=== PATIENT | male | born 1960 | race Caucasian/White ===

== ENCOUNTER 2018-03-14 07:12 | Day surgery (SDC) | payer OTHER ==
--- OUTSIDE RECORDS SUMMARY | 2018-03-14 07:15 | XMS REPORT ---
:1960 Author Organization eClinicalWorks Care Team Providers Name Role Phone Leland Mele Provider Role Unavailable Allergies No Known Allergies Problems Problem Type Condition Code Onset Dates Condition Status Assessment Meniere''s disease of both ears H81.03 Active Assessment Mixed hyperlipidemia E78.2 Active Assessment Chewing tobacco nicotine F17.220 Active dependence, uncomplicated Assessment Fatigue, unspecified type R53.83 Active Assessment Decreased libido R68.82 Active Problem Decreased libido R68.82 Active Problem Fatigue, unspecified type R53.83 Active Problem Mixed hyperlipidemia E78.2 Active Problem Slowing, urinary stream R39.198 Active Problem Meniere''s disease of both ears H81.03 Active Problem Chewing tobacco nicotine F17.220 Active dependence, uncomplicated Medications No Known Medications Results No Known Results Summary Purpose eClinicalWorks Submission
--- OUTSIDE RECORDS SUMMARY | 2018-03-14 07:15 | XMS REPORT ---
:1960 Author Organization eClinicalWorks Care Team Providers Name Role Phone Mele Ha Provider Role Unavailable Allergies, Adverse Reactions, Alerts Substance Reaction Event Type penicillin Info Not Available Drug Allergy Problems Problem Type Condition Code Onset Dates Condition Status Assessment Fatigue, unspecified type R53.83 Active Assessment Meniere''s disease of both ears H81.03 Active Assessment Decreased libido R68.82 Active Problem Fatigue, unspecified type R53.83 Active Problem Meniere''s disease of both ears H81.03 Active Problem Decreased libido R68.82 Active Assessment Encounter for preventative adult Z00.01 Active health care exam with abnormal findings Assessment Chewing tobacco nicotine F17.220 Active dependence, uncomplicated Problem Chewing tobacco nicotine F17.220 Active dependence, uncomplicated Problem Slowing, urinary stream R39.198 Active Assessment Slowing, urinary stream R39.198 Active Assessment Encounter for screening for other Z11.59 Active viral diseases Assessment Screening for colon cancer Z12.11 Active Medications No Known Medications Results No Known Results Summary Purpose eClinicalWorks Submission
[2018-03-14] MEDS ORDERED: Ringers Lactate 1,000 ML IV ONE (07:52)
[2018-03-14] MEDS ORDERED: SIMETHICONE 40 MG/ 0.6 ML ONE (08:04)
[2018-03-14] MEDS ORDERED: LIDOCAINE 1% MPF 5 ML VIAL ONE (08:37)
[2018-03-14] MEDS ORDERED: PROPOFOL 200 MG/20 ML VIAL IV ONE (08:37)
--- NOTE | 2018-03-14 09:09 | ENDO RPT ---
[address], [address] COLONOSCOPY PROCEDURE REPORT EXAM DATE: 03/14/2018 PATIENT NAME: Harvey Mehta MR #: [id number] BIRTHDATE: 1960 ATTENDING: Simone Gonzalez DR STATUS: outpatient SAP TRAINER: Beata Hess and Guerda Kinciad RN INDICATIONS: The patient is a 57 yr old Male here for a colonoscopy due to colon cancer screening PROCEDURE PERFORMED: Colonoscopy with biopsy - cold polypectomy MEDICATIONS: Per Anesthesia. ESTIMATED BLOOD LOSS: None CONSENT: The patient understands the risks and benefits of the procedure and understands that these risks include, but are not limited to: sedation, allergic reaction, infection, perforation and/or bleeding. Alternative means of evaluation and treatment include, among others: physical exam, x-rays, and/or surgical intervention. The patient elects to proceed with this endoscopic procedure. DESCRIPTION OF PROCEDURE: During intra-op preparation period all mechanical medical equipment was checked for proper function. Hand hygiene and appropriate measures for infection prevention was taken. Procedure, possible complications, alternatives including, but not limited to possibility of bleeding, perforation, tear, infection, sepsis, need for surgery, need for blood transfusion, were explained to the patient. After the risks, benefits and alternatives of the procedure were thoroughly explained, Informed consent was verified, confirmed and timeout was successfully executed by the treatment team. The patient was placed in the left lateral position. A digital rectal exam was performed and revealed an enlarged prostate and A digital rectal exam was performed and revealed internal hemorrhoids. After appropriate level of anesthesia, the scope was passed. The EC-[id number] ([id number]) endoscope was introduced through the anus and advanced to the cecum, which was identified by both the appendix and ileocecal valve. The quality of the prep was fair. The instrument was then slowly withdrawn as the colon was fully examined. Scope withdrawal time was 10 minutes. COLON FINDINGS: Mild diverticulosis was noted in the sigmoid colon. No bleeding was noted from the diverticulosis. Two small smooth flat polyps were found in the sigmoid colon. A polypectomy was performed with cold forceps. The resection was complete, the polyp tissue was completely retrieved and sent to histology. A polypectomy was performed using snare cautery. The resection was complete, the polyp tissue was completely retrieved and sent to histology. Retroflexed views revealed no abnormalities. The scope was then completely withdrawn from the patient and the procedure terminated. ADVERSE EVENTS: There were no complications. IMPRESSIONS: 1. Mild diverticulosis was noted in the sigmoid colon 2. Two small flat polyps were found in the sigmoid colon; polypectomy was performed in a piecemeal fashion with cold forceps; polypectomy was performed using snare cautery RECOMMENDATIONS: 1. avoid NSAIDS for 2 weeks 2. await biopsy results 3. follow-up: office 2 week(s) 4. yearly hemoccult starting in 4 years 5. increase dietary water RECALL: Return in 3 year(s) for Colonoscopy, pending biopsy results. Pending Biopsy Simone Gonzalez DR eSigned: Simone Gonzalez DR 03/14/2018 9:00 AM cc: CPT CODES: ICD9 CODES: PATIENT NAME: Harvey Mehta MR#: [id number]
== END 2018-03-14 09:40 | disposition home or self-care (01) ==
LOC: OR 07:12
PROVIDERS: ATTEND Surgery
PROC: 0DBN8ZX Excision of Sigmoid Colon, Via Natural or Artificial Opening Endoscopic, Diagnostic (ICD-10-PCS; 2018-03-14)
PROC: 0DBN8ZX Excision of Sigmoid Colon, Via Natural or Artificial Opening Endoscopic, Diagnostic (ICD-10-PCS; principal; 2018-03-14 08:30)
DX: Z12.11 Encounter for screening for malignant neoplasm of colon (principal); D12.5 Benign neoplasm of sigmoid colon; K63.5 Polyp of colon; K57.30 Diverticulosis of large intestine without perforation or abscess without bleeding; F17.220 Nicotine dependence, chewing tobacco, uncomplicated; Z88.0 Allergy status to penicillin; Z83.3 Family history of diabetes mellitus; Z82.49 Family history of ischemic heart disease and other diseases of the circulatory system; Z80.3 Family history of malignant neoplasm of breast
CPT/HCPCS: 88305; J2704

== ENCOUNTER 2022-12-03 12:35 | Emergency (ER) | payer OTHER ==
--- OUTSIDE RECORDS SUMMARY | 2022-12-03 12:37 | XMS REPORT | Continuity of Care Document ---
:1960 Author Organization [facility] t Address [address] [place] [address] [place] [address] Care Team Providers Name Role Phone Mele Ha Attending Clinician Unavailable Payers Payer Name Policy Type Policy Number Effective Date Expiration Date S pam Martinjaspal from [id number] [address] [facility] 00:00:00 - [facility] Problems Condition Condition Condition Status Onset Resolution Last Treating Co mments Source Name Details Category Date Date Treatment Clinician Date [id number] Slowing, Problem Commo n urinary Spirit stream [facility] [id number] Chewing Problem Common tobacco [facility] [id number] Meniere''s Problem Com mon disease of Spirit both ears [facility] [id number] Hypercalce Problem Com mon leonor [facility] [id number] Primary Problem Common insomnia [facility] [id number] Fatigue, Problem Commo n unspecifie Spirit d type [facility] [id number] Decreased Problem Commo n libido [facility] [id number] Mixed Problem Common hyperlipid Spirit emia [facility] [id number] Allergic Problem Commo n rhinitis, Spirit unspecifie - [facility] d [facility] un[facility] d trigger Allergies, Adverse Reactions, Alerts Allergy Allergy Status Severity Reaction(s) Onset Inactive Treating Comm ents Source Name Type Date Date Clinician Penicill Penicill Active Unknown Commo n in in [facility] Social History Social Habit Start Date Stop Date Quantity Comments Source History of Tobacco Use Co mmon [facility] Sex Assigned At Com mon [facility] Smoking Status Start Date Stop Date Source Former Smoker 2021-12-13 00:00:00 2021-12-13 00[facility]00:00 [facility]ations Ordered Filled Start Stop Current Ordering Indication Dosage Frequency Signature Comments Components Source Medication Medication Date Date Medication? Clinician (SIG) Name Name Janine Mehta No 40mg Common (Triamcinol (Triamcinol 9-13 S pirit one) one) 00:00: - [facility] Janine Mehta No 40mg Common (Triamcinol (Triamcinol 9-13 S pirit one) one) 00:00: - [facility] Janine Mehta No 40mg Common (Triamcinol (Triamcinol 9-13 S pirit one) one) 00:00: - [facility] Rosuvastati Rosuvastati No 1{table QD Rosuvastat n Calcium 5 n Calcium 5 8-11 t} in Calcium MG MG 00:00: 5 MG [facility] No 40mg Common (Triamcinol (Triamcinol 0-14 S pirit one) one) 00:00: - [facility] Janine Mehta 2018-04 No 40mg Common (Triamcinol (Triamcinol 0-14 S pirit one) one) 00:00: - [facility] Janine Mehta 2018-04 No 40mg Common (Triamcinol (Triamcinol 0-14 S pirit one) one) 00:00: - [facility] Janine Mehta No 40mg Common (Triamcinol (Triamcinol 4-17 S pirit one) one) 00:00: - [facility] Janine Mehta No 40mg Common (Triamcinol (Triamcinol 4-17 S pirit one) one) 00:00: - [facility] Janine Mehta 2019-0 No 40mg Common (Triamcinol (Triamcinol 4-17 S pirit one) one) 00:00: - [facility] Janine Reynaalog 2019-0 No 40mg Common (Triamcinol (Triamcinol 4-04 S pirit one) one) 00:00: - [facility] Janine Kenfan 2019-0 No 40mg Common (Triamcinol (Triamcinol 4-04 S pirit one) one) 00:00: - [facility] Janine Mehta 2019-0 No 40mg Common (Triamcinol (Triamcinol 4-04 S pirit one) one) 00:00: - [facility] Tamsulosin Tamsulosin No 1{capsu QD Tamsulosin HCl 0.4 MG HCl 0.4 MG le} HCl 0.4 MG Rosuvastati Rosuvastati No Rosuvastat n Calcium 5 n Calcium 5 in Calcium MG MG 5 MG Tamsulosin Tamsulosin No 1{capsu QD Tamsulosin HCl 0.4 MG HCl 0.4 MG le} HCl 0.4 MG Rosuvastati Rosuvastati No Rosuvastat n Calcium 5 n Calcium 5 in Calcium MG MG 5 MG Tamsulosin Tamsulosin No 1{capsu QD Tamsulosin HCl 0.4 MG HCl 0.4 MG le} HCl 0.4 MG Tamsulosin Tamsulosin Yes Mele 1 capsule Common HCl HCl Ha [facility] - [facility] Tamsulosin Tamsulosin No 1{capsu QD Tamsulosin HCl 0.4 MG HCl 0.4 MG le} HCl 0.4 MG Rosuvastati Rosuvastati No Rosuvastat n Calcium 5 n Calcium 5 in Calcium MG MG 5 MG Tamsulosin Tamsulosin No 1{capsu QD Tamsulosin HCl 0.4 MG HCl 0.4 MG le} HCl 0.4 MG Rosuvastati Rosuvastati No Rosuvastat n Calcium 5 n Calcium 5 in Calcium MG MG 5 MG Tamsulosin Tamsulosin No 1{capsu QD Tamsulosin HCl 0.4 MG HCl 0.4 MG le} HCl 0.4 MG Rosuvastati Rosuvastati No Rosuvastat n Calcium 5 n Calcium 5 in Calcium MG MG 5 MG Immunizations Ordered Immunization Filled Immunization Date Status Commen ts Source Name Name Janine Mehta 2021-01-09 Completed Common [facility] (Triamcinolone) (Triamcinolone) 13:54:00 - [facility] Janine Mehta 2019-02-09 Completed Common [facility] (Triamcinolone) (Triamcinolone) 15:09:00 - [facility] Janine Mehta 2018-08-13 Completed Common [facility] (Triamcinolone) (Triamcinolone) 15:18:00 - [facility] Janine Mehta 2018-07-31 Completed Common [facility] (Triamcinolone) (Triamcinolone) 15:56:00 [facility] Vital Signs Vital Name Observation Time Observation Value Comments Source height 2021-12-14 15:50:00 70 [in_i] [facility] weight 2021-12-14 15:50:00 165 [lb_av] [facility] temperature 2021-12-14 15:50:00 98.6 [degF] [facility] bmi 2021-12-14 15:50:00 23.67 kg/m2 [facility] blood pressure 2021-12-14 15:50:00 120 mm[Hg] Common [facility] - systolic [facility] blood pressure 2021-12-14 15:50:00 70 mm[Hg] Common [facility] - diastolic [facility] height 2021-11-08 16:00:00 70 [in_i] [facility] weight 2021-11-08 16:00:00 163.6 [lb_av] [facility] temperature 2021-11-08 16:00:00 97.8 [degF] [facility] bmi 2021-11-08 16:00:00 23.47 kg/m2 [facility] oximetry 2021-11-08 16:00:00 97 % Common S pirit [facility] respiratory rate 2021-11-08 16:00:00 17 /min Comm on [facility] blood pressure 2021-11-08 16:00:00 130 mm[Hg] Common [facility] - systolic [facility] blood pressure 2021-11-08 16:00:00 65 mm[Hg] Common [facility] - diastolic [facility] height 2021-04-13 09:50:00 70 [in_i] Common S [facility] weight 2021-04-13 09:50:00 171.0 [lb_av] [facility] temperature 2021-04-13 09:50:00 97.0 [degF] Common [facility] bmi 2021-04-13 09:50:00 24.53 kg/m2 Common [facility] oximetry 2021-04-13 09:50:00 100 % Common [facility] respiratory rate 2021-04-13 09:50:00 18 /min Comm on [facility] blood pressure 2021-04-13 09:50:00 120 mm[Hg] Common [facility] - systolic [facility] blood pressure 2021-04-13 09:50:00 85 mm[Hg] Common [facility] - diastolic [facility] height 2021-01-09 13:40:00 70 [in_i] Common S pirit [facility] weight 2021-01-09 13:40:00 178.5 [lb_av] Common [facility] temperature 2021-01-09 13:40:00 97.6 [degF] [facility] bmi 2021-01-09 13:40:00 25.61 kg/m2 Common S [facility] oximetry 2021-01-09 13:40:00 98 % [facility] rate 2021-01-09 13:40:00 18 /min Comm on [facility] blood pressure 2021-01-09 13:40:00 135 mm[Hg] Common [facility] - systolic [facility] blood pressure 2021-01-09 13:40:00 74 mm[Hg] Common [facility] - diastolic [facility] Procedures This patient has no known procedures. Encounters Start End Encounter Admission Attending Care Care Encounter Source Date/Time Date/Time Type Type Clinicians Facility Department ID 2022-11-12 Outpatient Ha, STLMLC STLMLC [id number] Common 11:27:00 Mele [id number] [facility] 2021-05-24 Outpatient Ha, STLMLC STLMLC [id number] Common 13:49:11 Mele 15810 [facility] 2021-05-24 Outpatient Ha, STLMLC STLMLC [id number] Common 13:24:54 Mele 39222 [facility] 2021-05-24 Outpatient Ha, STLMLC STLMLC [id number] Common 13:24:19 Mele 80917 [facility] 2021-05-24 Outpatient Ha, STLMLC STLMLC [id number] Common 12:38:40 Mele 23775 [facility] 2021-05-24 Outpatient Ha, STLMLC STLMLC [id number] Common 12:38:10 Mele 25688 [facility] 2021-05-24 Outpatient Ha, STLMLC STLMLC [id number] Common 11:18:01 Mele 74682 [facility] 2021-05-24 Outpatient Ha, STLMLC STLMLC [id number] Common 11:17:45 Mele 58147 [facility] 2021-05-24 Outpatient Ha, STLMLC STLMLC [id number] Common 11:01:06 Mele 26083 [facility] 2022-03-02 2022-03-02 (TEL) STLMLC STLMLC [id number] Co mmon 00:00:00 00:00:00 [facility] 2021-12-14 2021-12-14 OFFICE STLMLC STLMLC [id number] Co mmon 00:00:00 00:00:00 VISIT EST Spir it PT LEVEL 3 [facility] 2021-11-08 2021-11-08 PREV VISIT STLMLC STLMLC [id number] Common 00:00:00 00:00:00 EST [age] Manohar [age] [facility] 2021-04-13 2021-04-13 OFFICE STLMLC STLMLC [id number] Co mmon 00:00:00 00:00:00 VISIT EST Spir it PT LEVEL 3 [facility] 2021-04-12 2021-04-12 (TEL) STLMLC STLMLC [id number] Co mmon 00:00:00 00:00:00 [facility] 2021-01-09 2021-01-09 OFFICE STLMLC STLMLC [id number] Co mmon 00:00:00 00:00:00 VISIT EST Spir it PT LEVEL 3 [facility] 2020-12-07 2020-12-07 Outpatient STLMLC STLMLC [id number] Common 00:00:00 00:00:00 [facility] 2020-11-07 2020-11-07 Outpatient STLMLC STLMLC [id number] Common 00:00:00 00:00:00 [facility] 2020-07-07 2020-07-07 Outpatient STLMLC STLMLC [id number] Common 00:00:00 00:00:00 [facility] 2020-03-01 2020-03-01 Outpatient STLMLC STLMLC [id number] Common 00:00:00 00:00:00 [facility] 2019-10-29 2019-10-29 [id number] Common 15:30:00 15:30:[address] [facility] 2019-10-06 2019-10-06 [facility] [id number] Common 15:30:00 15:30:[address] [facility] 2019-05-13 2019-05-13 [facility] [id number] Common 15:29:00 15:29:[facility] [address] [facility] 2019-05-12 2019-05-12 [facility] [id number] Common 14:45:00 14:45:00 [facility] [address] [facility] 2019 2019 [facility] [id number] Common 16:41:00 16:41:00 [facility] [address] [facility] 2019-02-09 2019-02-09 [facility] [id number] Common 14:45:00 14:45:00 [facility] [address] [facility] 2018-11-06 2018-11-06 [facility] [id number] Common 15:15:00 15:15:00 [facility] [address] [facility] 2018-08-13 2018-08-13 [facility] [id number] Common 15:00:00 15:00:00 [facility] [address] [facility] 2018-07-31 2018-07-31 [facility] [id number] Common 15:15:00 15:15:00 [facility] [address] [facility] 2018-05-08 2018-05-08 [facility] [id number] Common 14:15:00 14:15:00 t Specialty/U Sp acacia Specialty rology - [facility] 2017-12-02 2017-12-02 [facility] [id number] Common 14:45:00 14:45:00 [facility] [address] [facility] 2017-08-26 2017-08-26 [facility] [id number] Common 14:45:00 14:45:00 [facility] [address] [facility] Results This patient has no known results.
[2022-12-03] MEDS ORDERED: KETOROLAC 30 MG/ML INJ ONE (13:24)
[2022-12-03] MEDS ORDERED: NA CHLORIDE 0.9% 1,000 ML ONE (13:24)
--- NOTE | 2022-12-03 13:43 | RAD REPORT ---
EXAM DESCRIPTION: CT - Stone Protocol - 12/03/2022 1:15 pm CLINICAL HISTORY: Abdominal pain. Left flank pain COMPARISON: None. TECHNIQUE: Computed axial tomography of the abdomen pelvis was obtained without oral or IV contrast. Lack of IV and oral contrast limits evaluation of solid organs, appendix, bowel, and vessels. Rodriguez l reformatted images were obtained and reviewed. All CT scans are performed using dose optimization technique as appropriate and may include automated exposure control or mA/KV adjustment according to patient size. FINDINGS: Tiny left renal calculus. Small renal cysts. No hydronephrosis. No ureteral calculus. A bl adder calculus is not present. The prostate gland is mildly to moderately enlarged. Small low-density lesion liver nonspecific but probably benign. The spleen, pancreas and adrenals are unremarkable. Diverticula stem from the colon. Mild stranding adjacent to the sigmoid colon. This is compatible wit h minimal diverticulitis. No free air. No abscess Small inguinal hernias contain fat IMPRESSION: Mild sigmoid diverticulitis Tiny nonobstructing left renal calculus
[2022-12-03 14:10] LABS: Albumin 3.7 g/dL (3.4-5.0); Bilirubin Total 0.9 mg/dL (0.2-1.0); Potassium 3.3 mEq/L (3.5-5.1); Protein, Total 7.1 g/dL (6.4-8.2)
[2022-12-03 14:55] LABS: Hematocrit 49.5 % (39.6-49.0); Lymphocytes % 24.6 % (15.3-44.8); MCV 92.2 fL (80-100); MPV 8.9 fL (7.6-11.3); Platelets 199 thou/uL (152-406); RBC Red Blood Cell Count 5.37 M/uL (4.33-5.43)
[2022-12-03 14:57] LABS: Specific Gravity 1.016 (1.005-1.030); Urine Bilirubin NEGATIVE (Negative); Urine Blood Negative (Negative); Urine Clarity Clear (Clear); Urine Color Light-Yellow (Yellow); Urine Glucose NEGATIVE (Negative); Urine Protein NEGATIVE (Negative); Urine Urobilinogen 1+ (Normal); Urine pH 6.5 (5.0-7.0)
--- NOTE | 2022-12-03 15:18 | EDPHYS ---
Physician Documentation [facility] Name: Harvey Mehta Age: 62 yrs Sex: Male : 1960 Arrival Date: 12/03/2022 Time: 12:35 Bed 18 Private MD: ED Physician Akhil Pimentel HPI: 12/03 13:00 This 62 yrs old Male presents to ER via Wheelchair with complaints of Possible Kidney jh7 Stone. 13:00 Onset: The symptoms/episode began/occurred yesterday. Associated signs and symptoms: jh7 Pertinent negatives: chest pain, cough, dysuria, fever, vomiting. 62-year-old male presents with a possible left kidney stone. He reports left flank pain since yesterday and has a history of multiple kidney stones. He denies fever.. Historical: - Allergies: 12:52 PENICILLINS; eh3 - PMHx: 12:52 Kidney stone; eh3 - PSHx: 12:52 Appendectomy; eh3 - Immunization history:: Adult Immunizations not up to date. - Social history:: Smoking status: Patient denies any tobacco usage or history of. Patient/guardian denies using alcohol. ROS: 13:00 Constitutional: Negative for fever, chills, and weight loss, Eyes: Negative for injury, jh7 pain, redness, and discharge, Neck: Negative for injury, pain, and swelling, Cardiovascular: Negative for chest pain, palpitations, and edema, Respiratory: Negative for shortness of breath, cough, wheezing, and pleuritic chest pain, Abdomen/GI: Negative for abdominal pain, nausea, vomiting, diarrhea, and constipation, MS/Extremity: Negative for injury and deformity, Skin: Negative for injury, rash, and discoloration, Neuro: Negative for headache, weakness, numbness, tingling, and seizure. 13:00 Back: Positive for flank pain, on the left. 13:00 : Positive for flank pain, Negative for urinary symptoms. 13:00 All other systems are negative. Exam: 13:00 Eyes: Pupils equal round and reactive to light, extra-ocular motions intact. Lids and jh7 lashes normal. Conjunctiva and sclera are non-icteric and not injected. Cornea within normal limits. Periorbital areas with no swelling, redness, or edema. Neck: Trachea midline, no thyromegaly or masses palpated, and no cervical lymphadenopathy. Supple, full range of motion without nuchal rigidity, or vertebral point tenderness. No Meningismus. Cardiovascular: Regular rate and rhythm with a normal S1 and S2. No gallops, murmurs, or rubs. Normal PMI, no JVD. No pulse deficits. Respiratory: Lungs have equal breath sounds bilaterally, clear to auscultation and percussion. No rales, rhonchi or wheezes noted. No increased work of breathing, no retractions or nasal flaring. Skin: Warm, dry with normal turgor. Normal color with no rashes, no lesions, and no evidence of cellulitis. MS/ Extremity: Pulses equal, no cyanosis. Neurovascular intact. Full, normal range of motion. Neuro: Awake and alert, GCS 15, oriented to person, place, time, and situation. Motor strength 5/5 in all extremities. Sensory grossly intact. Normal gait. 13:00 Constitutional: The patient appears alert, awake, in obvious pain. 13:00 : CVA tenderness, that is mild. 13:00 Abdomen/GI: Inspection: abdomen appears normal, Bowel sounds: normal, Palpation: [facility] abdomen is soft and non-tender, in all quadrants. Vital Signs: 12:50 Pulse 77; Resp 18; Temp 98.3; Pulse Ox 100% on R/A; Weight 77.11 kg; Height 5 ft. 10 eh3 in. ; Pain 9/10; 13:07 BP 129 / 84; Pulse 79; Resp 16; Pulse Ox 98% on R/A; Pain 7/10; me1 14:09 BP 120 / 90; Pulse 56; Resp 16; Pulse Ox 99% on R/A; me1 14:45 BP 128 / 88; Pulse 70; Resp 18; Pulse Ox 100% on R/A; me1 12:50 Body Mass Index 24.39 (77.11 kg, 177.8 cm) 3 12:50 Pain Scale: Adult eh3 13:07 Pain Scale: Adult me1 MDM: 12:44 Patient medically screened. [facility] 15:10 Differential diagnosis: Nephrolithiasis, sciatica, lumbar strain, diverticulitis. Data [facility] reviewed: vital signs, nurses notes, lab test result(s), radiologic studies, CT scan. I considered the following discharge prescriptions or medication management in the emergency department Medications were administered in the Emergency Department. See MAR. Historians other than the Patient: Spouse/Significant Other: . Counseling: I had a detailed discussion with the patient and/or guardian regarding: the historical points, exam findings, and any diagnostic results supporting the discharge/admit diagnosis, to return to the emergency department if symptoms worsen or persist or if there are any questions or concerns that arise at home. Response to treatment: the patient's symptoms have markedly improved after treatment. 15:10 ED course: Informed the patient of imaging results. Informed him that the CT showed a jh7 tiny renal stone in the kidney and that it was not in the ureter, therefore, not the cause of his pain. He requested a refill of his Flomax. Agreed to treat for diverticulitis. He denied any abdominal pain but reports that the flank pain radiates to his left hip. Agreed to follow-up with his PCP. If he develops any new concerning symptoms, he may return to the ER for further eval.. 12/03 12:57 Order name: CMP; Complete Time: 14:47 [facility] 12/03 12:57 Order name: CBC with Diff; Complete Time: 15:05 [facility] 12/03 12:57 Order name: Urinalysis w/ reflexes; Complete Time: 15:05 [facility] 12/03 12:57 Order name: CT Stone Protocol; Complete Time: 13:49 [facility] Administered Medications: 13:29 Drug: NS 0.9% IV 1000 ml Route: IV; Rate: 1 bolus; Site: right antecubital; me1 14:11 Follow up: IV Status: Completed infusion; IV Intake: 1000ml me1 13:29 Drug: Ketorolac IVP 30 mg Route: IVP; Site: right antecubital; me1 14:10 Follow up: Response: No adverse reaction; Pain is decreased me1 Disposition: 15:57 Co-signature as Attending Physician, Akhil Pimentel MD. rn Disposition Summary: 12/03/22 15:17 Discharge Ordered Location: Home [facility] Problem: new jh Symptoms: have improved jh7 Condition: Stable jh7 Diagnosis - Diverticulitis of large intestine without perforation or abscess without bleeding jh7 - Nephrolithiasis jh7 Followup: [facility] - With: Private Physician - When: 2 - 3 days - Reason: Recheck today's complaints Discharge Instructions: - Discharge Summary Sheet jh7 - Diverticulitis jh7 - Kidney Stones [facility] Forms: - Medication Reconciliation Form [facility] - Thank You Letter [facility] - Antibiotic Education [facility] - Prescription Opioid Use [facility] - Patient Portal Instructions [facility] Prescriptions: - Flomax 0.4 mg Oral capsule - take 1 capsule by ORAL route daily; 14 capsule; Refills: 0, Product Selection [facility] Permitted - Cipro 500 mg Oral Tablet - take 1 tablet by ORAL route every 12 hours for 10 days; 20 tablet; Refills: 0, [facility] Product Selection Permitted - Flagyl 500 mg Oral Tablet - take 1 tablet by ORAL route every 12 hours for 7 days; 14 tablet; Refills: 0, [facility] Product Selection Permitted - Tramadol 50 mg Oral Tablet - take 1 tablet by ORAL route every 8 hours as needed; 12 tablet; Refills: 0, [facility] Product Selection Permitted Signatures: Dispatcher [employer] EDAkhil Faulkner MD MD rn Hall, Erin, RN RN 3 Jacqueline Saravia, [place] [address] Coty Vang RN RN me1 Corrections: (The following items were deleted from the chart) 16:25 13:00 : CVA tenderness, that is moderate, [place] [id number]
--- NOTE | 2022-12-03 15:18 | ER ---
Nurse's Notes [facility] Name: Harvey Mehta Age: 62 yrs Sex: Male : 1960 Arrival Date: 12/03/2022 Time: 12:35 Bed 18 Private MD: Diagnosis: Diverticulitis of large intestine without perforation or abscess without bleeding;Nephrolithiasis Presentation: 12/03 12:50 Chief complaint: Patient states: left flank pain started yesterday, has Hx of kidney eh3 stones. Coronavirus screen: Vaccine status: Patient reports being unvaccinated. Ebola Screen: No symptoms or risks identified at this time. Initial Sepsis Screen: Does the patient meet any 2 criteria? No. Patient's initial sepsis screen is negative. Does the patient have a suspected source of infection? No. Patient's initial sepsis screen is negative. Risk Assessment: Do you want to hurt yourself or someone else?. Onset of symptoms was December 03, 2022. 12:50 Method Of Arrival: Wheelchair eh3 12:50 Acuity: TACO 3 eh3 Triage Assessment: 12:52 General: Appears in no apparent distress. uncomfortable, Behavior is cooperative, eh3 appropriate for age. Pain: Complains of pain in left flank. Neuro: Level of Consciousness is awake, alert, obeys commands, Oriented to person, place, time, situation. Cardiovascular: Capillary refill < 3 seconds Patient's skin is warm and dry. Respiratory: Airway is patent Respiratory effort is even, unlabored, Respiratory pattern is regular, symmetrical. GI: Abdomen is round non-distended. Historical: - Allergies: 12:52 PENICILLINS; eh3 - PMHx: 12:52 Kidney stone; eh3 - PSHx: 12:52 Appendectomy; eh3 - Immunization history:: Adult Immunizations not up to date. - Social history:: Smoking status: Patient denies any tobacco usage or history of. Patient/guardian denies using alcohol. Screenin:07 [facility] ED Fall Risk Assessment (Adult) Score/Fall Risk Level 0 - 2 = Low Risk. Abuse me1 screen: Denies threats or abuse. Nutritional screening: No deficits noted. Tuberculosis screening: No symptoms or risk factors identified. Assessment: 13:07 General: Appears uncomfortable, well groomed, well developed, well nourished, Behavior me1 is cooperative, appropriate for age, agitated, Reports left flank pain that started yesterday. Denies fever, feeling ill, fatigue, chills. 13:07 Pain: Complains of pain in left flank Pain does not radiate. Pain currently is 7 out of me1 10 on a pain scale. Quality of pain is described as sharp, Pain began 1 day ago. Neuro: Level of Consciousness is awake, alert, obeys commands, Oriented to person, place, time, situation, Appropriate for age. Cardiovascular: Capillary refill < 3 seconds Patient's skin is warm and dry. Respiratory: Respiratory effort is even, unlabored, Respiratory pattern is regular, symmetrical. GI: Patient currently denies nausea, vomiting. : Denies burning with urination. 15:48 GI: Bowel sounds present X 4 quads. [facility] Vital Signs: 12:50 Pulse 77; Resp 18; Temp 98.3; Pulse Ox 100% on R/A; Weight 77.11 kg; Height 5 ft. 10 eh3 in. ; Pain 9/10; 13:07 BP 129 / 84; Pulse 79; Resp 16; Pulse Ox 98% on R/A; Pain 7/10; me1 14:09 BP 120 / 90; Pulse 56; Resp 16; Pulse Ox 99% on R/A; me1 14:45 BP 128 / 88; Pulse 70; Resp 18; Pulse Ox 100% on R/A; me1 12:50 Body Mass Index 24.39 (77.11 kg, 177.8 cm) 3 12:50 Pain Scale: Adult [facility] 13:07 Pain Scale: Adult [facility] ED Course: 12:35 Patient arrived in ED. rg4 12:44 Jacqueline Saravia FNP is PHCP. jh7 12:44 Akhil Pimentel MD is Attending Physician. 7 12:52 Triage completed. eh3 12:52 Arm band placed on. eh3 13:07 Coty Vang, OSITO is Primary Nurse. me1 13:07 Patient has correct armband on for positive identification. Bed in low position. Call [facility] light in reach. Side rails up X 1. Provided Education on: POC. Verbalized understanding. . 13:07 No provider procedures requiring assistance completed. az1 13:14 CT Stone Protocol In Process Unspecified. EDMS 13:29 Inserted saline lock: 20 gauge in right antecubital area, using aseptic technique. me1 13:29 CBC with Diff Sent. me1 13:29 CMP Sent. me1 14:29 Urinalysis w/ reflexes Sent. me1 15:48 IV discontinued, intact, bleeding controlled, No redness/swelling at site. Pressure me1 dressing applied. Administered Medications: 13:29 Drug: NS 0.9% IV 1000 ml Route: IV; Rate: 1 bolus; Site: right antecubital; me1 14:11 Follow up: IV Status: Completed infusion; IV Intake: 1000ml me1 13:29 Drug: Ketorolac IVP 30 mg Route: IVP; Site: right antecubital; me1 14:10 Follow up: Response: No adverse reaction; Pain is decreased me1 Medication: 13:07 VIS not applicable for this client. me1 Intake: 14:11 IV: 1000ml; Total: 1000ml. me1 Outcome: 15:17 Discharge ordered by . [facility] 15:48 Discharged to home ambulatory, with significant other. me1 15:48 Condition: stable 15:48 Discharge instructions given to patient, significant other, Instructed on discharge instructions, follow up and referral plans. medication usage, Demonstrated understanding of instructions, follow-up care, medications. 15:49 Patient left the ED. me1 Signatures: Dispatcher [employer] Miladis Melendez 4 Franci Barnes, RN RN 3 Jacqueline Saravia, CREAM BEATER CREAM BEATER 7 Coty Vang, RN RN me1
[2022-12-03 15:58] VITALS: TEMP 98.3
[2022-12-03 16:15] VITALS: BP 128/88; O2SAT 100
== END 2022-12-03 15:49 | disposition home or self-care (01) ==
LOC: ER 12:35
DX: K57.32 Diverticulitis of large intestine without perforation or abscess without bleeding (principal); N20.0 Calculus of kidney; Z87.442 Personal history of urinary calculi; Z88.0 Allergy status to penicillin
CPT/HCPCS: 96361; 85025; 36415; 81003; 80053; 76377; 74176; 96374; 99284; J7030